=== PATIENT | female | born 1960 | race Caucasian/White ===

== ENCOUNTER 2018-07-02 16:15 | Emergency (ER) | payer OTHER ==
[~2018-07-02] VITALS: Ht 154.9 cm; Wt 71.0 kg
[2018-07-02] MEDS ORDERED: METFORMIN HCL500 MG PO (16:25)
[2018-07-02] MEDS ORDERED: LISINOPRIL10 MG PO (16:25)
[2018-07-02] MEDS ORDERED: GLUCOTROL5 MG PO (16:26)
[2018-07-02] MEDS ORDERED: FLEXERIL PO (16:26)
[2018-07-02 16:37] LABS: ABSOLUTE BASOPHILS 0.1 thou/uL (0.0-0.2); ABSOLUTE LYMPHOCYTES 2.2 thou/uL (0.8-5.3); ABSOLUTE MONOCYTES 0.4 thou/uL (0.0-1.2); ABSOLUTE NEUTROPHILS 5.1 thou/uL (1.6-8.1); BASOPHILS 0.7 %; EOSINOPHILS 0.5 %; HEMATOCRIT 48.3 % (37.0-47.0); HEMOGLOBIN 15.8 gm/dL (12.0-15.0); LYMPHOCYTES 28.2 %; MCH 28.8 pg (26.0-34.0); MCHC 32.8 g/dL (28.0-37.0); MCV 87.9 fL (80.0-100.0); MONOCYTES 5.2 %; MPV 10.4 fl. (7.2-11.1); NUCLEATED RBCS 0 /100WBC; PLATELET COUNT* 230 thou/uL (150-400); POLYS 65.4 %; RDW-CV 14.1 % (10.5-14.5); WBC 7.7 thou/uL (4.0-11.0)
[2018-07-02 16:48] LABS: CALCIUM 9.2 mg/dL (8.5-10.1); CREATININE 1.3 mg/dL (0.6-1.3); POTASSIUM 3.8 mmol/L (3.5-5.1)
[2018-07-02 16:49] LABS: ALBUMIN 3.1 g/dL (3.4-5.0); TOTAL BILIRUBIN 0.2 mg/dL (<0.1-1.0); TOTAL PROTEIN 7.7 g/dL (6.4-8.2)
[2018-07-02 18:28] VITALS: BP 165/77
== END 2018-07-02 18:28 | disposition home or self-care (01) ==
LOC: M.ERS 16:15
PROVIDERS: Family Medicine
DX: E11.65 Type 2 diabetes mellitus with hyperglycemia (principal); M54.5 Low back pain; E78.5 Hyperlipidemia, unspecified; I10 Essential (primary) hypertension; F17.210 Nicotine dependence, cigarettes, uncomplicated; Z88.6 Allergy status to analgesic agent

== ENCOUNTER 2018-08-08 14:32 | Emergency (ER) | payer OTHER ==
[~2018-08-08] VITALS: Ht 154.9 cm; Wt 70.3 kg
[~2018-08-08 14:32] MED LIST: FLEXERIL PO; GLUCOTROL5 MG PO; LISINOPRIL10 MG PO; METFORMIN HCL500 MG PO
[2018-08-08 14:33] VITALS: BP 163/92
== END 2018-08-08 15:02 | disposition home or self-care (01) ==
LOC: M.ERS 14:32
DX: M54.9 Dorsalgia, unspecified (principal); G89.29 Other chronic pain; F17.210 Nicotine dependence, cigarettes, uncomplicated; E11.9 Type 2 diabetes mellitus without complications; E78.00 Pure hypercholesterolemia, unspecified; I10 Essential (primary) hypertension; Z88.6 Allergy status to analgesic agent; Z88.8 Allergy status to other drugs, medicaments and biological substances